=== PATIENT | female | born 1985 | race Two or more races ===

== ENCOUNTER 2017-03-28 06:10 | Inpatient (IN) | payer SELFPAY ==
[~2017-03-28] VITALS: Ht 160 cm; Wt 84.4 kg
[2017-03-28] MEDS ORDERED: OXYTOCIN 30 UNIT/500 ML PREMIX 500 ML IV PRN ×4 (06:30→13:30)
[2017-03-28] MEDS ORDERED: ONDANSETRON PF 4 MG/2 ML VIAL. IV PRN ×2 (06:30→13:30)
[2017-03-28] MEDS ORDERED: fentaNYL PF VIAL 100 MCG/2 ML VIAL IV PRN (06:30)
[2017-03-28] MEDS ORDERED: BUTORPHANOL 2 MG/ML VIAL. IV PRN (06:30)
[2017-03-28] MEDS ORDERED: MAG HYDROX/ALUMINUM HYD/SIMETH 30 ML ORAL.SUSP PO PRN ×4 (06:30→13:30)
[2017-03-28] MEDS ORDERED: ACETAMINOPHEN 325 MG TABLET. PO PRN ×3 (06:30→12:00)
[2017-03-28] MEDS ORDERED: LIDOCAINE 1% PF 30 ML VIAL. INJ PRN (06:30)
[2017-03-28] MEDS ORDERED: TERBUTALINE 1 MG/ML VIAL. SQ PRN (06:30)
[2017-03-28] MEDS ORDERED: 0.9 % SODIUM CHLORIDE 10 ML DISP.SYRIN. IV PRN ×4 (06:30→13:30)
[2017-03-28] MEDS ORDERED: IBUPROFEN 600 MG TABLET. PO PRN (06:30)
[2017-03-28 07:58] VITALS: BP 134/83
[2017-03-28] MEDS: IV RINGERS,LACTATED 1000ML 1,000 ML IV SCH ×2 (08:17→14:30)
[2017-03-28 08:33] LABS: HEMATOCRIT 39.7 % (36.0-47.0); HEMOGLOBIN 12.8 g/dL (12.0-15.5); RED BLOOD COUNT 4.54 x10^6/uL (3.50-5.40); RED CELL DISTRIBUTION WIDTH 13.9 % (11.5-14.5); WHITE BLOOD COUNT 11.6 x10^3/uL (4.0-11.0)
--- NOTE | 2017-03-28 11:18 | PDOC1 ---
OB - History Hx of Present Care: Good Care Ultrasounds: Normal mid trimester US Obstetrical Complications: None Medical Complications: None Past Family/Social History * Past Medical, Surgical, Family and Obstetric Histories reviewed from chart. Rubella: Immune RPR/VDRL: Negative GBS Status: Negative HBsAG: Negative OB - Chief Complaint & HPI Date of Admission: Date of Admission: Mar 28, 2017 at 06:10 Chief Complaint/History : 3 Para: 2 EGA: 39 Reason for admission: induction of labor Indication for induction: maternal discomfort, history of rapid labor Admission Nurse Assessment Rev: Yes Problems: OB - Admission Exam Physical Exam Vitals: VS - Last 72 Hours, by Label Date Time Temp Pulse Resp B/P (MAP) Pulse Ox O2 Delivery O2 Flow Rate FiO2 03/28/17 07:58 98.9 92 20 134/83 (100) 98.9 HEENT: Normal Heart: Regular Rate Lungs: Clear Abdomen: Gravid, Non tender, Soft Extremities: Edema Reflexes: Normal Cervical Dilatation: 3cm Effacement: 75% Station: -3 Membranes: Intact Heart Rate: Normal Accelerations: Accelerations Present Decelerations: No decelerations Contractions on Admission: None Text A: 39 wks IUP IOL secondary maternal discomforts and rapid delivery P; Admit for labor induction pitocin. PARMINDER AREVALO Jr, MD Mar 28, 2017 11:18
--- NOTE | 2017-03-28 11:19 | PDOC ---
VAGINAL DELIVERY DATE DATE: 03/28/17 TIME: 11:18 : 3 Para: 3 EGA: 39 VAGINAL DELIVERY: VTX VACCUM ASSISTED: No PLACENTA: Spontaneous 8/9 SEX: Female WEIGHT Weight [ 3535 gm] Nuchal Cord: Yes, Times 2 Amniotic Fluid: Clear PAIN: Natural EPISIOTOMY: No EXTENSION: Yes (2nd degree midline laceration) REPAIRED WITH 2-0 vicryl EBL 300 ml COMPLICATIONS none CONDITION pt. stable Signs of Intrauterine Infectio: None Shoulder Dystocia: No Problems: PARMINDER AREVALO Jr, MD Mar 28, 2017 11:19
[2017-03-28] MEDS ORDERED: BENZOCAINE 20% TOPICAL AEROSOL SPRAY 57GM CAN. TP PRN ×2 (11:30→12:00)
[2017-03-28] MEDS ORDERED: oxyCODONE/APAP 5/325 1 TAB TABLET PO PRN ×5 (11:30→13:30)
[2017-03-28] MEDS ORDERED: SIMETHICONE 80 MG TAB.CHEW PO PRN ×3 (11:30→13:30)
[2017-03-28] MEDS ORDERED: MMR per PROTOCOL. MC PRN ×3 (11:30→13:30)
[2017-03-28] MEDS ORDERED: MAGNESIUM HYDROXIDE 2,400 MG/30 ML ORAL.SUSP. PO PRN ×3 (11:30→13:30)
[2017-03-28] MEDS ORDERED: HYDROCORTISONE 1% TOPICAL OINTMENT 30GM TUBE. TP PRN ×2 (11:30→12:00)
[2017-03-28] MEDS ORDERED: diphenhydrAMINE HCL 25 MG CAPSULE PO PRN ×2 (11:30→12:00)
[2017-03-28] MEDS ORDERED: ZOLPIDEM 5 MG TABLET. PO PRN ×3 (11:30→13:30)
[2017-03-28] MEDS ORDERED: DOCUSATE SODIUM 100 MG CAPSULE. PO PRN ×2 (11:30→13:30)
[2017-03-28] MEDS ORDERED: IBUPROFEN 800 MG TABLET. PO PRN (11:30)
[2017-03-28] MEDS ORDERED: PHENYLEPH/MINERAL OIL/PETROLAT RECTAL OINTMENT 28GM TUBE. RC PRN ×2 (11:30→12:00)
[2017-03-28] MEDS ORDERED: diphenhydrAMINE ORAL ELIXIR 12.5 MG/5 ML ML PO PRN (13:30)
[2017-03-28] MEDS: IBUPROFEN 800 MG TABLET. PO SCH (14:10)
[2017-03-28 14:15] VITALS: BP 112/68
[2017-03-28 15:30] VITALS: BP 107/63
[2017-03-28] MEDS ORDERED: FERROUS SULFATE 325 MG TABLET. PO SCH (17:00)
[2017-03-28] MEDS: SENNOSIDES/DOCUSATE 8.6/50MG TABLET. PO SCH (21:00)
[2017-03-28 23:00] VITALS: BP 123/72
[2017-03-29] MEDS: IBUPROFEN 800 MG TABLET. PO SCH ×3 (06:00→14:00)
[2017-03-29 06:24] VITALS: BP 135/76
[2017-03-29 06:24] LABS: RPR REFLEX Non Reactive (Non Reactive)
[2017-03-29 07:35] LABS: BASO # 0.1 x10^3/uL (0.0-0.2); BASO % 1 % (0-3); EOS % 1 % (0-3); HEMATOCRIT 37.2 % (36.0-47.0); HEMOGLOBIN 12.1 g/dL (12.0-15.5); LYMPH # 2.1 x10^3/uL (1.0-4.8); LYMPH % 15 % (24-48); MEAN CORPUSCULAR HEMOGLOBIN 29 pg (25-35); MEAN CORPUSCULAR HGB CONC 32 g/dL (31-37); MEAN CORPUSCULAR VOLUME 89 fL (79-100); MONO % 5 % (0-9); NEUT % 79 % (31-73); PLATELET COUNT 148 x10^3/uL (140-400); RED BLOOD COUNT 4.19 x10^6/uL (3.50-5.40); RED CELL DISTRIBUTION WIDTH 13.9 % (11.5-14.5); WHITE BLOOD COUNT 14.2 x10^3/uL (4.0-11.0)
[2017-03-29] MEDS ORDERED: FERROUS SULFATE 325 MG TABLET. PO SCH ×2 (08:00)
[2017-03-29] MEDS: SENNOSIDES/DOCUSATE 8.6/50MG TABLET. PO SCH (09:00)
[2017-03-29 10:10] VITALS: BP 123/71
--- NOTE | 2017-03-29 11:27 | PDOC ---
Provider Note Provider Note Doing well VSS uterus NTTP FU in AM Vital Sign - Last 24 Hours 03/28/17 03/28/17 03/28/17 03/29/17 14:15 15:30 23:00 06:24 Temp 98.0 98.0 98.5 98.1 98.0 98.0 98.5 98.1 Pulse 60 63 66 66 Resp 20 18 16 16 B/P (MAP) 112/68 (83) 107/63 (78) 123/72 (89) 135/76 (95) Pulse Ox 97 98 O2 Delivery Room Air Room Air 03/29/17 10:10 Temp 98.1 98.1 Pulse 59 Resp 18 B/P (MAP) 123/71 (88) Pulse Ox 97 O2 Delivery Room Air CBC - BMP 03/29/17 07:15 ADELA HUERTA MD Mar 29, 2017 11:27
[2017-03-29 17:35] VITALS: BP 121/71
[2017-03-29 20:13] VITALS: BP 117/68
[2017-03-30 04:37] VITALS: BP 121/78
[2017-03-30] MEDS: SENNOSIDES/DOCUSATE 8.6/50MG TABLET. PO SCH (09:00)
[2017-03-30 11:00] VITALS: BP 112/74
[2017-03-30 16:00] VITALS: BP 121/83
--- NOTE | 2017-03-30 19:07 | PDOC3 ---
OB DISCHARGE SUMMARY DATE OF ADMISSION: 03/28/17 DATE OF DISCHARGE: 03/30/17 REASON FOR ADMISSION: Induction of labor PROCEDURES: Ultrasound INTRAPARTUM PROCEDURES: Spontanous Vag Deliv OPERATIONS: None DISCHARGE DIAGNOSIS: Term Delivered DISCHARGE INFORMATION: Activity, Diet HOSPITAL COURSE unremarkable CONDITION AT DISCHARGE Stable ADELA HUERTA MD Mar 30, 2017 19:07
[2017-03-30] MEDS ORDERED: HYDR-971 PO (19:09)
[2017-03-30] MEDS ORDERED: NAPR500T3 PO (19:09)
[2017-03-30 20:10] VITALS: BP 118/73
== END 2017-03-30 20:15 | disposition home or self-care (01) | DRG 775 ==
LOC: 3 SO LND 06:10 → 3 NORTH 14:12
PROVIDERS: ADMIT Specialist; ATTEND Specialist
PROC: 10E0XZZ Delivery of Products of Conception, External Approach (ICD-10-PCS; principal; 2017-03-28)
PROC: 0KQM0ZZ Repair Perineum Muscle, Open Approach (ICD-10-PCS; 2017-03-28)
PROC: 3E033VJ Introduction of Other Hormone into Peripheral Vein, Percutaneous Approach (ICD-10-PCS; 2017-03-28)
DX: O69.81X0 Labor and delivery complicated by cord around neck, without compression, not applicable or unspecified (principal); O75.89 Other specified complications of labor and delivery; O70.1 Second degree perineal laceration during delivery; Z37.0 Single live birth; Z3A.39 39 weeks gestation of pregnancy
CPT/HCPCS: 36415; 85027; 86593; 86850; 86900; 86901; C1887; J2590; J7120